=== PATIENT | female | born 1950 | race African-American/Black ===

== ENCOUNTER → 2021-03-14 | Outpatient (CLI) | payer MEDICARE | LOC: RAD 15:32 | PROVIDERS: ATTEND Internal Medicine | DX: Z01.810 Encounter for preprocedural cardiovascular examination (principal) | CPT/HCPCS: 71046 ==

== ENCOUNTER 2021-04-08 07:01 | Observation (INO) | payer MEDICARE ==
[~2021-04-08] VITALS: Ht 152.4 cm; Wt 61.7 kg
[~2021-04-08 07:01] MED LIST: COZAAR25 MG PO; LOSARTAN POTAS100 MG PO; VIT D3 PO
[2021-04-08] MEDS ORDERED: ROPIVACAINE 246.25 MG, EPINEPHRINE HCL 1:1000 1ML 0.5 MG, CLONIDINE HCL 0.08 MG, KETORO... INJ ONE ×5 (08:00)
[2021-04-08] MEDS ORDERED: CELECOXIB 200 MG CAP ONE ×2 (08:02→17:44)
[2021-04-08] MEDS ORDERED: DEXAMETHASONE SOD PHOS 10 MG/1 ML VIAL ONE (08:02)
[2021-04-08] MEDS ORDERED: GABAPENTIN 300 MG CAP ONE (08:03)
[2021-04-08] MEDS ORDERED: SODIUM CHLORIDE 0.9% 50ML 100 ML ONE (08:03)
[2021-04-08] MEDS ORDERED: TRANEXAMIC ACID 1,000 MG/10 ML ML ONE (08:43)
[2021-04-08] MEDS ORDERED: SODIUM CHLORIDE 0.9% 500ML 500 ML ONE (08:43)
[2021-04-08] MEDS ORDERED: Vancomycin IV 1,000 MG ONE (08:43)
[2021-04-08] MEDS ORDERED: HYDROCODONE/APAP 5MG-325MG TAB PO PRN (10:30)
[2021-04-08] MEDS ORDERED: DIPHENHYDRAMINE HCL INJ 50 MG/ML VIAL IV PRN (10:30)
[2021-04-08] MEDS ORDERED: ZOLPIDEM TARTRATE 5 MG TAB PO PRN (10:30)
[2021-04-08] MEDS ORDERED: DOCUSATE SODIUM 100 MG CAP PO PRN (10:30)
[2021-04-08] MEDS: SODIUM CHLORIDE 0.9% 1000ML 1,000 ML IV SCH ×2 (10:30→20:21)
[2021-04-08] MEDS ORDERED: ACETAMINOPHEN 650 MG SUPP PR PRN (10:30)
[2021-04-08] MEDS ORDERED: ONDANSETRON HCL INJ 2MG/ML 2ML 2 MG/ML VIAL IV PRN (10:30)
[2021-04-08] MEDS ORDERED: KETOROLAC TROMETHAMINE 30 MG/ML VIAL IV PRN (10:30)
[2021-04-08] MEDS ORDERED: HYDROMORPHONE 1MG/1ML INJ ONE ×2 (10:55→11:36)
[2021-04-08] MEDS ORDERED: FENTANYL CITRATE/PF 100MCG/2 ML INJ ONE ×2 (11:09→13:18)
[2021-04-08] MEDS ORDERED: ACETAMINOPHEN 1000 MG/100 ML 100 ML IV ONE (11:50)
[2021-04-08] MEDS ORDERED: ONDANSETRON HCL INJ 2MG/ML 2ML 2 MG/ML VIAL ONE (12:25)
[2021-04-08] MEDS ORDERED: LIDOCAINE HCL 2% LOCAL INJ 5 ML SDV VIAL INJ ONE (12:25)
[2021-04-08] MEDS ORDERED: POVIDONE IODINE 0.05% 0.05 % ML PO ONE (12:25)
[2021-04-08] MEDS ORDERED: PROPOFOL IV EMULSION 10 MG/ML 20 ML VIAL ONE (12:25)
[2021-04-08] MEDS ORDERED: SEVOFLURANE INHAL SOLN 250 ML PEN BTL ONE (12:25)
[2021-04-08] MEDS ORDERED: ROPIVACAINE 0.5% 5 MG/ML 30 ML SDV ONE (12:55)
[2021-04-08] MEDS ORDERED: MIDAZOLAM HCL 2 MG/2 ML VIAL ONE (13:18)
[2021-04-08] MEDS ORDERED: HYDROCODONE/APAP 5MG-325MG TAB ONE (14:36)
[2021-04-08] MEDS: Cefazolin 1 GM in SODIUM CHLORIDE 0.9% 50ML 50 ML IV SCH (17:40)
[2021-04-08] MEDS: ASPIRIN 325 MG TAB PO SCH (17:40)
[2021-04-08] MEDS: CELECOXIB 200 MG CAP PO SCH (17:40)
[2021-04-08 20:00] VITALS: BP 136/76
[2021-04-08] MEDS: HYDROCODONE/APAP 7.5MG-325MG 1 EA TAB PO PRN (21:18)
[2021-04-08 21:38] VITALS: BP 136/70
[2021-04-09] VITALS: BP 135/73
[2021-04-09] MEDS ORDERED: SODIUM CHLORIDE 0.9% 250ML 250 ML ONE (01:51)
[2021-04-09] MEDS: Cefazolin 1 GM in SODIUM CHLORIDE 0.9% 50ML 50 ML IV SCH ×2 (01:57→08:29)
[2021-04-09 04:00] VITALS: BP 132/69
[2021-04-09 05:18] LABS: HEMATOCRIT 35.1 % (34.2-44.1)
[2021-04-09] MEDS: SODIUM CHLORIDE 0.9% 1000ML 1,000 ML IV SCH (06:30)
[2021-04-09 07:06] VITALS: BP 116/85
[2021-04-09 07:16] VITALS: BP 116/85
[2021-04-09] MEDS: ASPIRIN 325 MG TAB PO SCH (08:28)
[2021-04-09] MEDS: CELECOXIB 200 MG CAP PO SCH (08:29)
[2021-04-09] MEDS: HYDROCODONE/APAP 7.5MG-325MG 1 EA TAB PO PRN (08:32)
[2021-04-09] MEDS ORDERED: ONDANSETRON HCL 4 MG ORAL DISINTEGRATING TAB PO PRN (08:45)
[2021-04-09] MEDS ORDERED: ACETAMINOPHEN 1000 MG/100 ML IV PRN (10:30)
[2021-04-09 11:01] VITALS: BP 132/62
[2021-04-09] MEDS ORDERED: ONDANSETRON ODT4 MG PO (11:22)
[2021-04-09] MEDS ORDERED: COLACE100 MG PO (11:22)
[2021-04-09] MEDS ORDERED: ASPIRIN325 MG PO (11:22)
[2021-04-09] MEDS ORDERED: Celecoxib PO (11:22)
[2021-04-09 11:24] LABS: BASOPHILS % 0.3 % (0.0-1.0); EOSINOPHILS % 0.3 % (0.0-6.0); HEMATOCRIT 34.9 % (34.2-44.1); HEMOGLOBIN 10.6 g/dL (12.0-16.0); LYMPHOCYTES # (AUTO) 1.9 (1.0-3.2); LYMPHOCYTES % 15.6 % (18.0-39.1); MEAN CORPUSCULAR HGB CONC 30.4 g/dL (31-35); MEAN CORPUSCULAR VOLUME 88.8 fL (81-99); MONOCYTES # (AUTO) 1.1 (0.2-0.8); MONOCYTES % 9.3 % (4.4-11.3); NEUTROPHILS # (AUTO) 8.9 (2.1-6.9); NEUTROPHILS % 74.1 % (38.7-80.0); PLATELET COUNT 209 x10e3/uL (140-360); RED BLOOD COUNT 3.93 x10e6/uL (3.6-5.1); RED CELL DISTRIBUTION WIDTH 12.8 % (11.7-14.4)
[2021-04-09 11:40] LABS: ANION GAP 12.7 mmol/L (8-16); CALCIUM 8.8 mg/dL (8.4-10.2); CREATININE, SERUM 0.8 mg/dL (0.57-1.11); POTASSIUM 3.7 mmol/L (3.5-5.1)
== END 2021-04-09 13:20 | disposition home or self-care (01) ==
LOC: OR 07:01 → PACU V 10:26 → MED/SURG 18:43
PROVIDERS: ADMIT Specialist; ATTEND Specialist
DX: M17.0 Bilateral primary osteoarthritis of knee (principal); I10 Essential (primary) hypertension; Z01.818 Encounter for other preprocedural examination
CPT/HCPCS: 27447; 36415; 73560; 80048; 83735; 84100; 85014; 85018; 85025; 86850; 86900; 86920; 97110; 97116 ×2; 97161; 97530; C1713 ×2; C1776; G0378 ×2; J0131; J0171; J0690 ×2; J1100; J1170; J1885 ×2; J2001; J2250; J2405; J2704; J2795; J3010; J3370; J7040; J7050